=== PATIENT | female | born 1980 | race Caucasian/White ===

== ENCOUNTER 2016-06-03 21:56 | Emergency (ER) | payer OTHER ==
[~2016-06-03] VITALS: Ht 162.6 cm; Wt 48.6 kg
[~2016-06-03 21:56] MED LIST: ALBUTEROL SULF8.5 GM IH; AMBIEN10 MG PO; ATIVAN0.5 MG PO; BUPROPION HCL150 M2 PO; BUSPAR10 MG PO; BUTALB-APAP-CA1 EACH PO; CIPRO250 MG PO; CIPROFLOXACIN250 MG PO; DAILY VALUE1 EACH PO; EXCEDRIN EXTRA1 EACH PO; FIORICET,ESG1 TABLET PO; FLEXERIL10 MG PO; HYDROCODON-ACE1 EAC9 PO; IMITREX100 MG PO; IMITREX50 MG PO; Imitrex PO; KEFLEX500 MG PO; LAMICTAL25 MG PO; LATUDA40 MG PO; LEVO-T75 MCG PO; LEVOTHYROXINE75 MCG PO; LEXAPRO10 MG PO; LORAZEPAM0.5 MG PO; LORTAB 5-325 M1 EACH PO; MACROBID100 MG PO; MEDROXYPROGEST2.5 MG PO; MEDROXYPROGESTERONE; MOBIC15 MG PO; MOTRIN800 MG PO; NAPROSYN500 MG PO; OMEGA-31000 M1 PO; PEPTO BISMOL240 ML PO; PHENAZOPYRIDIN100 MG PO; PRENATAL TABLE1 EACH PO; PROAIR HFA8.5 GM IH; PYRIDIUM100 MG PO; PYRIDIUM200 MG PO; SYNTHROID50 MCG PO; TOPAMAX25 MG PO; TRAMADOL HCL50 MG PO; TRAZODONE HCL50 MG PO; ULTRAM50 MG PO; VALTREX1000 MG PO; VIBRAMYCIN100 MG PO; WELLBUTRIN; WELLBUTRIN SR150 MG PO; ZOFRAN ODT4 MG PO; ZOVIRAX400 MG PO; celeXA PO
[2016-06-03 22:03] VITALS: BP 132/63
[2016-06-03 22:29] LABS: HEMATOCRIT 35.7 % (36.0-46.0); MCH 32.1 PG (29.0-34.0); MCHC 34.5 G/DL (30.0-36.0); MCV 93.2 FL (83-99); MEAN PLAT.VOLUME 10.3 uM^3 (9.5-12.4); PLATELET COUNT 236 K/uL (156-360); RBC DIS.WIDTH-CV 11.9 % (11.8-14.6); RBC DIS.WIDTH-SD 39.7 % (39-53); RED BLOOD COUNT 3.83 M/uL (3.80-5.20); WHITE BLOOD COUNT 13.5 K/uL (4.1-10.2)
[2016-06-03 22:35] LABS: CHLORIDE 102 mEq/L (99-109); POTASSIUM 3.4 mEq/L (3.7-5.4); SODIUM 138 mEq/L (136-147)
[2016-06-03 22:37] LABS: GLUCOSE 76 mg/dL (70-99)
[2016-06-03 22:39] LABS: ANION GAP 9 MEQ/L (2-14)
[2016-06-03 22:41] LABS: GFR ESTIMATE (CALCULATED) > 59 mL/min/
[2016-06-03 22:42] LABS: UREA NITROGEN (BUN) 11 mg/dL (9-23)
[2016-06-03] MEDS ORDERED: PROAIR HFA8.5 GM IH (23:03)
== END 2016-06-03 23:19 | disposition home or self-care (01) ==
LOC: RME 21:56 → EME 21:56 → RME 23:19
DX: O99.341 Other mental disorders complicating pregnancy, first trimester (principal); F41.1 Generalized anxiety disorder; J45.909 Unspecified asthma, uncomplicated; F17.200 Nicotine dependence, unspecified, uncomplicated; Z3A.08 8 weeks gestation of pregnancy; Z88.0 Allergy status to penicillin
CPT/HCPCS: 80048; 85027; 99281; 99283

== ENCOUNTER 2016-07-03 16:46 | Emergency (ER) | payer OTHER ==
[~2016-07-03] VITALS: Ht 162.6 cm; Wt 50.3 kg
[2016-07-03 17:38] LABS: HEMATOCRIT 32.7 % (36.0-46.0); MCH 32.8 PG (29.0-34.0); MCHC 34.6 G/DL (30.0-36.0); MCV 94.8 FL (83-99); PLATELET COUNT 189 K/uL (156-360); RBC DIS.WIDTH-CV 12.3 % (11.8-14.6); RBC DIS.WIDTH-SD 41.2 % (39-53); RED BLOOD COUNT 3.45 M/uL (3.80-5.20); WHITE BLOOD COUNT 11.9 K/uL (4.1-10.2)
[2016-07-03 18:28] LABS: ADD MIUA? YES; BILIRUBIN NEGATIVE; BLOOD NEGATIVE; COLOR YELLOW ((YELLOW)); GLUCOSE (STRIP) 150; KETONES NEGATIVE; LEUKOCYTES NEGATIVE; NITRITE NEGATIVE; PROTEIN (STRIP) NEGATIVE; SPECIFIC GRAVITY 1.014 (1.000-1.030); UROBILINOGEN 0.2 MG/DL (0.2-1.0)
[2016-07-03 18:33] LABS: AMORPHOUS URATES CRYSTALS FEW; BACTERIA RARE /HPF; CRYSTALS PRESENT; EPITHELIAL CELLS RARE /HPF; MUCUS TRACE /LPF; RED BLOOD CELLS 0-5 /HPF (0-5); UCUL ADDED? NO
[2016-07-03 19:00] VITALS: BP 109/80
== END 2016-07-03 19:01 | disposition home or self-care (01) ==
LOC: EME 16:46
PROVIDERS: Physician Assistant
DX: O20.0 Threatened abortion (principal); Y04.8XXA Assault by other bodily force, initial encounter; J45.909 Unspecified asthma, uncomplicated; F17.200 Nicotine dependence, unspecified, uncomplicated
CPT/HCPCS: 76801; 81003; 84702; 85027; 99281; 99283

== ENCOUNTER 2016-09-20 14:16 | Inpatient (IN) | payer OTHER ==
[~2016-09-20] VITALS: Ht 162.6 cm; Wt 54.9 kg
[2016-09-20 15:44] LABS: EOSINOPHIL (%) 1.3 % (0-5); EOSINOPHIL COUNT 0.2 K/uL (0-0.3); HEMATOCRIT 32.4 % (36.0-46.0); IMMATURE GRANULOCYTE (%) 3.3 % (0.0-0.7); IMMATURE GRANULOCYTE COUNT 0.4 K/uL; INSTRUMENT ABS NEUTROPHIL CT 9.7 K/uL; LYMPHOCYTE COUNT 1.7 K/uL (1.0-2.8); MCH 32.7 PG (29.0-34.0); MCHC 34.3 G/DL (30.0-36.0); MCV 95.6 FL (83-99); MEAN PLAT.VOLUME 10.1 uM^3 (9.5-12.4); MONOCYTE (%) 7.6 % (3-12); NEUTROPHIL (%) 74.3 % (45-76); NEUTROPHIL COUNT 9.7 K/uL (1.8-6.4); PLATELET COUNT 209 K/uL (156-360); RBC DIS.WIDTH-CV 12.2 % (11.8-14.6); RBC DIS.WIDTH-SD 42.5 % (39-53); RED BLOOD COUNT 3.39 M/uL (3.80-5.20); WHITE BLOOD COUNT 13.1 K/uL (4.1-10.2)
[2016-09-20 15:53] LABS: CHLORIDE 105 mEq/L (99-109); POTASSIUM 3.7 mEq/L (3.7-5.4); SODIUM 136 mEq/L (136-147)
[2016-09-20 15:56] LABS: GLUCOSE 78 mg/dL (70-99)
[2016-09-20 15:57] LABS: ANION GAP 8 MEQ/L (2-14)
[2016-09-20 15:58] LABS: TOTAL BILIRUBIN 0.2 mg/dL (0.0-1.0)
[2016-09-20 15:59] LABS: SERUM ETHYL ALCOHOL < 10 mg/dL
[2016-09-20 16:00] LABS: ALKALINE PHOSPHATASE 55 IU/L (3-129); GFR ESTIMATE (CALCULATED) > 59 mL/min/
[2016-09-20 16:01] LABS: UREA NITROGEN (BUN) 6 mg/dL (9-23)
[2016-09-20 16:03] LABS: SALICYLATE < 5.0 MG/DL (15-30)
[2016-09-20] MEDS ORDERED: LATUDA60 MG PO (16:38)
[2016-09-20] MEDS ORDERED: LEVO-T88 MCG PO (16:38)
[2016-09-20] MEDS ORDERED: ZOVIRAX400 MG PO (16:39)
[2016-09-20 17:43] VITALS: BP 123/56
[2016-09-20] MEDS ORDERED: FIORICET,ESG1 TABLET PO (18:10)
[2016-09-20] MEDS ORDERED: TYLENOL REGULA325 MG PO (18:11)
[2016-09-21 07:41] VITALS: BP 94/44
[2016-09-21 15:04] VITALS: BP 110/50
[2016-09-22 08:04] VITALS: BP 89/50
[2016-09-22 15:57] VITALS: BP 97/54
[2016-09-22 21:43] VITALS: BP 102/59
[2016-09-23 07:34] VITALS: BP 89/54
[2016-09-23] MEDS ORDERED: SERTRALINE HCL50 MG PO (09:27)
== END 2016-09-23 11:09 | disposition home or self-care (01) | DRG 781 ==
LOC: EME 14:16 → 1WEST 16:42 → EDOF 16:42 → 1WEST 17:36
PROVIDERS: Emergency Medicine
DX: O99.342 Other mental disorders complicating pregnancy, second trimester (principal); F41.9 Anxiety disorder, unspecified; F33.1 Major depressive disorder, recurrent, moderate; Z3A.24 24 weeks gestation of pregnancy; O26.892 Other specified pregnancy related conditions, second trimester; F60.9 Personality disorder, unspecified; F11.10 Opioid abuse, uncomplicated
CPT/HCPCS: 80053; 81003; 85025; 90839; 97150 GO; 97165 GO; 99281; 99285; G0480

== ENCOUNTER 2016-10-27 17:13 | Outpatient (CLI) | payer OTHER ==
[~2016-10-27] VITALS: Ht 162.6 cm; Wt 53.5 kg
[2016-10-27 17:06] VITALS: BP 101/51
[~2016-10-27 17:13] MED LIST changes: +LATUDA60 MG PO; +LEVO-T88 MCG PO; +SERTRALINE HCL50 MG PO; +TYLENOL REGULA325 MG PO
[2016-10-27 17:45] VITALS: BP 110/50
[2016-10-27 18:12] VITALS: BP 97/53
[2016-10-27 18:27] LABS: ADD MIUA? NO; BILIRUBIN NEGATIVE; BLOOD NEGATIVE; COLOR STRAW ((YELLOW)); GLUCOSE (STRIP) NEGATIVE; KETONES NEGATIVE; LEUKOCYTES NEGATIVE; NITRITE NEGATIVE; PROTEIN (STRIP) NEGATIVE; SPECIFIC GRAVITY 1.006 (1.000-1.030); UCUL ADDED? NO; UROBILINOGEN 0.2 MG/DL (0.2-1.0)
[2016-10-27 18:34] LABS: HEMATOCRIT 29.6 % (36.0-46.0); MCH 34.1 PG (29.0-34.0); MCHC 34.1 G/DL (30.0-36.0); MEAN PLAT.VOLUME 10.2 uM^3 (9.5-12.4); PLATELET COUNT 159 K/uL (156-360); RBC DIS.WIDTH-CV 12.2 % (11.8-14.6); RBC DIS.WIDTH-SD 44.5 % (39-53); RED BLOOD COUNT 2.96 M/uL (3.80-5.20); WHITE BLOOD COUNT 13.9 K/uL (4.1-10.2)
[2016-10-27 18:38] LABS: ADD MEDTOX COMMENT Y; AMPHETAMINE NEGATIVE (500 ng/mL); BARBITURATES PRESUMPTIVE POSITIVE (200 ng/mL); BENZODIAZEPINES NEGATIVE (150 ng/mL); COCAINE NEGATIVE (150 ng/mL); INTERNAL CONTROLS VALID? YES; METHADONE NEGATIVE (200 ng/mL); METHAMPHETAMINE NEGATIVE (500 ng/mL); OPIATES (MORPHINE) NEGATIVE (100 ng/mL); OXYCODONE NEGATIVE (100 ng/mL); PHENCYCLIDINE NEGATIVE (25 ng/mL); PROPOXYPHENE NEGATIVE (300 ng/mL); THC CANNABINOIDS NEGATIVE (50 ng/mL); TRICYCLIC ANTIDEPRESSANTS NEGATIVE (300 ng/mL)
[2016-10-27 18:43] LABS: ANION GAP 6 MEQ/L (2-14); CHLORIDE 102 MEQ/L (99-109); SAMPLE HEMOLYSIS CHECK 0; SAMPLE ICTERIC CHECK 0; SAMPLE LIPEMIA CHECK 0; SODIUM 135 MEQ/L (136-147); TOTAL BILIRUBIN 0.3 MG/DL (0.0-1.0)
[2016-10-27 18:49] LABS: ALKALINE PHOSPHATASE 58 IU/L (3-129); GFR ESTIMATE (CALCULATED) > 59 mL/min/; GLUCOSE 84 mg/dL (70-99); UREA NITROGEN (BUN) 9 mg/dL (9-23)
[2016-10-27 19:06] LABS: ABS NEUTROPHIL COUNT 10.6; ANISOCYTOSIS 1+; ATYPICAL LYMPHOCYTE 2.6 %; BAND NEUTROPHILS 1.7 % (0-8.0); EOSINOPHIL ABS CT 0.2; EOSINOPHILS 1.7 % (0-5.0); INSTRUMENT ABS NEUTROPHIL CT 9.8 K/uL; LYMPHOCYTES 12.2 % (15.0-45.0); MACROCYTES 1+; METAMYELOCYTES 0.9 %; MYELOCYTES 2.6 %; POLYCHROMASIA 1+; SEG.NEUTROPHILS 74.8 % (46.0-76.0)
[2016-10-27 20:07] VITALS: BP 87/40
== END 2016-10-27 21:25 | disposition home or self-care (01) ==
LOC: LDRP-OP 17:13 → 2WEST 17:14 → LDRP-OP 02-07 10:54
PROVIDERS: Nurse Practitioner
DX: O99.343 Other mental disorders complicating pregnancy, third trimester (principal); F33.9 Major depressive disorder, recurrent, unspecified; F50.9 Eating disorder, unspecified; O99.283 Endocrine, nutritional and metabolic diseases complicating pregnancy, third trimester; E86.0 Dehydration; Z3A.31 31 weeks gestation of pregnancy; O99.333 Smoking (tobacco) complicating pregnancy, third trimester; F17.200 Nicotine dependence, unspecified, uncomplicated
CPT/HCPCS: 59025; 80053; 81003; 84999; 85025; G0378

== ENCOUNTER 2016-11-03 17:52 | Outpatient (CLI) | payer OTHER ==
[~2016-11-03] VITALS: Ht 162.6 cm; Wt 54.4 kg
[2016-11-03 18:08] VITALS: BP 101/47
[2016-11-03] MEDS ORDERED: ZOLOFT50 MG PO (18:59)
[2016-11-03 21:06] VITALS: BP 106/53
== END 2016-11-03 21:37 | disposition home or self-care (01) ==
LOC: LDRP-OP 17:52 → 2WEST 17:55 → LDRP-OP 02-07 21:37
DX: O36.8130 Decreased fetal movements, third trimester, not applicable or unspecified (principal); Z3A.30 30 weeks gestation of pregnancy
CPT/HCPCS: 59025; G0378; J7120

== ENCOUNTER 2016-11-30 11:00 | Outpatient (CLI) | payer OTHER ==
[~2016-11-30 11:00] MED LIST changes: +ZOLOFT50 MG PO
[2016-11-30 11:21] VITALS: BP 99/50
[2016-11-30] MEDS ORDERED: LATUDA40 MG PO (11:27)
== END 2016-11-30 14:10 | disposition home or self-care (01) ==
LOC: LDRP-OP 11:00 → 2WEST 11:01 → LDRP-OP 02-07 21:48
DX: O9A.213 Injury, poisoning and certain other consequences of external causes complicating pregnancy, third trimester (principal); O99.283 Endocrine, nutritional and metabolic diseases complicating pregnancy, third trimester; E03.9 Hypothyroidism, unspecified; Z3A.34 34 weeks gestation of pregnancy; R10.9 Unspecified abdominal pain; W21.05XA Struck by basketball, initial encounter; Y92.310 Basketball court as the place of occurrence of the external cause
CPT/HCPCS: 59025; G0378

== ENCOUNTER 2016-12-19 15:02 | Outpatient (CLI) | payer OTHER ==
[~2016-12-19] VITALS: Ht 162.6 cm; Wt 56.2 kg
[2016-12-19 15:27] VITALS: BP 100/56
[2016-12-19] MEDS ORDERED: PROAIR HFA8.5 GM IH (21:02)
== END 2016-12-19 16:24 | disposition home or self-care (01) ==
LOC: LDRP-OP → 2WEST 15:06 → LDRP-OP 02-07 14:22
DX: O99.343 Other mental disorders complicating pregnancy, third trimester (principal); R45.851 Suicidal ideations; Z3A.37 37 weeks gestation of pregnancy
CPT/HCPCS: 59025; G0378

== ENCOUNTER 2016-12-19 16:19 | Inpatient (IN) | payer OTHER ==
[~2016-12-19] VITALS: Ht 162.6 cm; Wt 56.8 kg
[2016-12-19 19:31] LABS: HEMATOCRIT 29.3 % (36.0-46.0); MCH 33.6 PG (29.0-34.0); MCHC 33.8 G/DL (30.0-36.0); MCV 99.3 FL (83-99); MEAN PLAT.VOLUME 10.6 uM^3 (9.5-12.4); PLATELET COUNT 148 K/uL (156-360); RBC DIS.WIDTH-CV 12.8 % (11.8-14.6); RBC DIS.WIDTH-SD 45.9 % (39-53); RED BLOOD COUNT 2.95 M/uL (3.80-5.20); WHITE BLOOD COUNT 11.9 K/uL (4.1-10.2)
[2016-12-19 19:39] LABS: CHLORIDE 108 mEq/L (99-109); POTASSIUM 3.4 mEq/L (3.7-5.4); SODIUM 139 mEq/L (136-147)
[2016-12-19 19:40] LABS: GLUCOSE 120 mg/dL (70-99)
[2016-12-19 19:42] LABS: ANION GAP 7 MEQ/L (2-14)
[2016-12-19 19:43] LABS: SERUM ETHYL ALCOHOL < 10 mg/dL
[2016-12-19 19:44] LABS: GFR ESTIMATE (CALCULATED) > 59 mL/min/
[2016-12-19 19:46] LABS: UREA NITROGEN (BUN) 5 mg/dL (9-23)
[2016-12-19 19:47] LABS: SALICYLATE < 5.0 MG/DL (15-30)
[2016-12-19 20:20] LABS: ADD MEDTOX COMMENT Y; AMPHETAMINE NEGATIVE (500 ng/mL); BARBITURATES PRESUMPTIVE POSITIVE (200 ng/mL); BENZODIAZEPINES NEGATIVE (150 ng/mL); COCAINE NEGATIVE (150 ng/mL); INTERNAL CONTROLS VALID? YES; METHADONE NEGATIVE (200 ng/mL); METHAMPHETAMINE NEGATIVE (500 ng/mL); OPIATES (MORPHINE) NEGATIVE (100 ng/mL); OXYCODONE NEGATIVE (100 ng/mL); PHENCYCLIDINE NEGATIVE (25 ng/mL); PROPOXYPHENE NEGATIVE (300 ng/mL); THC CANNABINOIDS NEGATIVE (50 ng/mL); TRICYCLIC ANTIDEPRESSANTS NEGATIVE (300 ng/mL)
[2016-12-19] MEDS ORDERED: PROAIR HFA8.5 GM IH (21:02)
[2016-12-19 21:10] VITALS: BP 107/55
[2016-12-19 21:13] VITALS: BP 107/55
[2016-12-20 07:54] VITALS: BP 84/44
[2016-12-20 13:02] VITALS: BP 101/49
[2016-12-20 15:32] VITALS: BP 105/52
[2016-12-21 08:00] VITALS: BP 86/42
[2016-12-21 09:52] VITALS: BP 107/46
[2016-12-21] MEDS ORDERED: CITALOPRAM HBR10 MG PO (10:08)
== END 2016-12-21 12:32 | disposition home or self-care (01) | DRG 781 ==
LOC: EME 16:19 → 1WEST 19:36 → EDOF 19:36 → 1WEST 19:36 → ENRESERV 20:26 → 1WEST 21:07
PROVIDERS: Emergency Medicine
DX: O99.343 Other mental disorders complicating pregnancy, third trimester (principal); F33.9 Major depressive disorder, recurrent, unspecified; R45.851 Suicidal ideations; F60.9 Personality disorder, unspecified; O99.283 Endocrine, nutritional and metabolic diseases complicating pregnancy, third trimester; E86.0 Dehydration; K08.89 Other specified disorders of teeth and supporting structures; K02.9 Dental caries, unspecified; O99.513 Diseases of the respiratory system complicating pregnancy, third trimester; J45.909 Unspecified asthma, uncomplicated; O99.333 Smoking (tobacco) complicating pregnancy, third trimester; F17.200 Nicotine dependence, unspecified, uncomplicated; Z88.0 Allergy status to penicillin; Z3A.36 36 weeks gestation of pregnancy
CPT/HCPCS: 80048; 84999; 85027; 90839; 99281; 99285; G0480; J7030

== ENCOUNTER 2016-12-31 06:59 | Inpatient (IN) | payer OTHER ==
[~2016-12-31] VITALS: Ht 162.6 cm; Wt 57.7 kg
[2016-12-31] VITALS (17 sets, daily range): BP systolic 89–129; BP diastolic 48–66
[~2016-12-31 06:59] MED LIST changes: +CITALOPRAM HBR10 MG PO
[2016-12-31] MEDS ORDERED: TYLENOL WITH C1 EACH PO (07:42)
[2016-12-31 08:44] LABS: HEMATOCRIT 33.8 % (36.0-46.0); MCH 34.6 PG (29.0-34.0); MCHC 35.8 G/DL (30.0-36.0); MCV 96.6 FL (83-99); MEAN PLAT.VOLUME 10.5 uM^3 (9.5-12.4); PLATELET COUNT 171 K/uL (156-360); RBC DIS.WIDTH-CV 13.1 % (11.8-14.6); RBC DIS.WIDTH-SD 45.7 % (39-53); WHITE BLOOD COUNT 14.2 K/uL (4.1-10.2)
[2016-12-31 09:10] LABS: ABS NEUTROPHIL COUNT 11.6; ATYPICAL LYMPHOCYTE 0.9 %; BAND NEUTROPHILS 0.9 % (0-8.0); EOSINOPHIL ABS CT 0.2; EOSINOPHILS 1.7 % (0-5.0); LYMPHOCYTES 6.8 % (15.0-45.0); METAMYELOCYTES 2.5 %; MYELOCYTES 2.5 %; PLAT.SUFFICIENCY ADEQUATE; SEG.NEUTROPHILS 80.5 % (46.0-76.0); SMUDGE CELLS 4.2
[2016-12-31] MEDS ORDERED: IBUPROFEN800 MG PO (14:16)
[2016-12-31 17:11] LABS: AMPHETAMINES QUANT VALUE ND NG/ML; OPIATES QUANTITATIVE VALUE ND NG/ML
[2016-12-31 17:12] LABS: BARBITUATES QUANT VALUE ND NG/ML; BENZODIAZEPINES QUANT VALUE ND NG/ML; BENZODIAZEPINES, URINE SCREEN ND (200 ng/mL); MARIJUANA QUANT VALUE ND NG/ML
[2016-12-31 17:13] LABS: PHENCYCLIDINE QUANT VALUE ND NG/ML
[2016-12-31 17:49] LABS: AMPHETAMINE NEGATIVE (500 ng/mL); BENZODIAZEPINES PRESUMPTIVE POSITIVE (150 ng/mL); COCAINE NEGATIVE (150 ng/mL); METHADONE NEGATIVE (200 ng/mL); METHAMPHETAMINE NEGATIVE (500 ng/mL); OPIATES (MORPHINE) PRESUMPTIVE POSITIVE (100 ng/mL); PHENCYCLIDINE NEGATIVE (25 ng/mL); THC CANNABINOIDS NEGATIVE (50 ng/mL); TRICYCLIC ANTIDEPRESSANTS NEGATIVE (300 ng/mL)
[2016-12-31 17:50] LABS: ADD MEDTOX COMMENT Y; BARBITURATES PRESUMPTIVE POSITIVE (200 ng/mL); INTERNAL CONTROLS VALID? YES; MEDTOX DRUG SCREEN COMMENT SENT TO RW FOR CONF.; OXYCODONE NEGATIVE (100 ng/mL); PROPOXYPHENE NEGATIVE (300 ng/mL)
[2017-01-01 23:40] VITALS: BP 101/49
[2017-01-02 08:42] VITALS: BP 110/62
[2017-01-02] MEDS ORDERED: RISPERIDONE0.5 MG PO (10:53)
[2017-01-02] MEDS ORDERED: BUPROPION XL150 MG PO (10:53)
[2017-01-02 14:59] VITALS: BP 119/59
== END 2017-01-02 21:28 | disposition home or self-care (01) | DRG 774 ==
LOC: LDRP-OP 06:59 → 2WEST 07:00 → LDRP-OP 02-07 20:53
PROVIDERS: Obstetrics & Gynecology
PROC: 10E0XZZ Delivery of Products of Conception, External Approach (ICD-10-PCS; principal; 2016-12-31)
PROC: 10907ZC Drainage of Amniotic Fluid, Therapeutic from Products of Conception, Via Natural or Artificial Opening (ICD-10-PCS; 2016-12-31)
PROC: 3E0S3BZ Introduction of Anesthetic Agent into Epidural Space, Percutaneous Approach (ICD-10-PCS; 2016-12-31)
DX: O99.824 Streptococcus B carrier state complicating childbirth (principal); F33.9 Major depressive disorder, recurrent, unspecified; F11.20 Opioid dependence, uncomplicated; O98.32 Other infections with a predominantly sexual mode of transmission complicating childbirth; R45.851 Suicidal ideations; F41.9 Anxiety disorder, unspecified; F50.9 Eating disorder, unspecified; K08.9 Disorder of teeth and supporting structures, unspecified; O99.324 Drug use complicating childbirth; O99.344 Other mental disorders complicating childbirth; J45.909 Unspecified asthma, uncomplicated; K58.9 Irritable bowel syndrome, unspecified; Z37.0 Single live birth; F17.210 Nicotine dependence, cigarettes, uncomplicated; O99.284 Endocrine, nutritional and metabolic diseases complicating childbirth; O99.334 Smoking (tobacco) complicating childbirth; E02 Subclinical iodine-deficiency hypothyroidism; G89.29 Other chronic pain; O99.354 Diseases of the nervous system complicating childbirth; M54.9 Dorsalgia, unspecified; O99.52 Diseases of the respiratory system complicating childbirth; O99.62 Diseases of the digestive system complicating childbirth; A63.0 Anogenital (venereal) warts; A60.00 Herpesviral infection of urogenital system, unspecified; O77.0 Labor and delivery complicated by meconium in amniotic fluid; O69.81X0 Labor and delivery complicated by cord around neck, without compression, not applicable or unspecified; F12.10 Cannabis abuse, uncomplicated; Z3A.39 39 weeks gestation of pregnancy; Z91.5 Personal history of self-harm; Z88.0 Allergy status to penicillin
CPT/HCPCS: 80306 90; 84999; 85025; C1755; J3010; J3370; J7120

== ENCOUNTER 2017-03-10 06:29 | Day surgery (SDC) | payer OTHER ==
[~2017-03-10] VITALS: Ht 162.6 cm; Wt 49.4 kg
[~2017-03-10 06:29] MED LIST changes: +BUPROPION XL150 MG PO; +IBUPROFEN800 MG PO; +KLONOPIN1 MG PO; +RISPERIDONE0.5 MG PO; +TYLENOL WITH C1 EACH PO
[2017-03-10 07:00] VITALS: BP 92/42
[2017-03-10] MEDS ORDERED: IBUPROFEN800 MG PO (09:57)
[2017-03-10] MEDS ORDERED: HYDROCODON-ACE1 EAC7 PO (09:57)
[2017-03-10 11:14] VITALS: BP 107/58
[2017-03-10 12:15] VITALS: BP 99/52
[2017-03-10 13:27] VITALS: BP 98/50
== END 2017-03-10 13:27 | disposition home or self-care (01) ==
LOC: SDC 06:29
DX: Z30.2 Encounter for sterilization (principal); N92.0 Excessive and frequent menstruation with regular cycle; E03.9 Hypothyroidism, unspecified; J45.40 Moderate persistent asthma, uncomplicated; F32.9 Major depressive disorder, single episode, unspecified; F17.210 Nicotine dependence, cigarettes, uncomplicated
CPT/HCPCS: 88302; 88305; 93005; J0131; J1100; J1580; J1885; J2250; J2405; J2710; J3010; J7050

== ENCOUNTER 2017-03-18 20:29 | Emergency (ER) | payer OTHER ==
[~2017-03-18] VITALS: Ht 162.6 cm; Wt 51.8 kg
[~2017-03-18 20:29] MED LIST changes: +HYDROCODON-ACE1 EAC7 PO
[2017-03-18] MEDS ORDERED: RISPERDAL1 MG PO (21:00)
[2017-03-18 21:19] LABS: HEMATOCRIT 32.9 % (36.0-46.0); MCH 31.1 PG (29.0-34.0); MCHC 34.3 G/DL (30.0-36.0); MCV 90.6 FL (83-99); MEAN PLAT.VOLUME 10.3 uM^3 (9.5-12.4); PLATELET COUNT 272 K/uL (156-360); RBC DIS.WIDTH-CV 12.1 % (11.8-14.6); RBC DIS.WIDTH-SD 40.2 % (39-53); RED BLOOD COUNT 3.63 M/uL (3.80-5.20); WHITE BLOOD COUNT 9.5 K/uL (4.1-10.2)
[2017-03-18 21:48] LABS: QUANTITATIVE HCG < 4.0 MIU/ML
[2017-03-18 23:55] LABS: ADD MIUA? YES; BILIRUBIN NEGATIVE; BLOOD LARGE; COLOR YELLOW ((YELLOW)); GLUCOSE (STRIP) NEGATIVE; KETONES NEGATIVE; LEUKOCYTES NEGATIVE; NITRITE NEGATIVE; PROTEIN (STRIP) 30; UROBILINOGEN 0.2 MG/DL (0.2-1.0)
[2017-03-19 00:09] LABS: CHLORIDE 105 mEq/L (99-109); POTASSIUM 3.6 mEq/L (3.7-5.4); SODIUM 138 mEq/L (136-147)
[2017-03-19 00:10] LABS: GLUCOSE 98 mg/dL (70-99)
[2017-03-19 00:12] LABS: ANION GAP 12 MEQ/L (2-14)
[2017-03-19 00:13] LABS: BACTERIA 1+ /HPF; EPITHELIAL CELLS RARE /HPF; MUCUS NONE SEEN /LPF; RED BLOOD CELLS TNTC /HPF (0-5); UCUL ADDED? YES
[2017-03-19 00:14] LABS: CASTS NONE SEEN /LPF; CRYSTALS NONE SEEN
[2017-03-19 00:14] LABS: GFR ESTIMATE (CALCULATED) > 59 mL/min/
[2017-03-19 00:15] LABS: UREA NITROGEN (BUN) 14 mg/dL (9-23)
[2017-03-19 00:23] VITALS: BP 120/49
== END 2017-03-19 00:29 | disposition home or self-care (01) ==
LOC: EME 20:29 → RME 20:29
DX: N93.9 Abnormal uterine and vaginal bleeding, unspecified (principal); Z98.890 Other specified postprocedural states; J45.909 Unspecified asthma, uncomplicated; F32.9 Major depressive disorder, single episode, unspecified; K21.9 Gastro-esophageal reflux disease without esophagitis; Z88.0 Allergy status to penicillin; F17.200 Nicotine dependence, unspecified, uncomplicated
CPT/HCPCS: 76856; 80048; 81003; 84702; 85027; 87086; 99281; 99285; J1410